=== PATIENT | female | born 1975 | race Caucasian/White ===

== ENCOUNTER 2021-06-20 16:48 | Emergency (ER) | payer MEDICAID ==
[~2021-06-20] VITALS: Ht 157.5 cm; Wt 115.0 kg
[2021-06-20 17:05] VITALS: BP 186/114
[2021-06-20] MEDS ORDERED: VISCOUS LIDOCAINE 2% 15 ML UDC PO STA (19:58)
[2021-06-20] MEDS ORDERED: ACETAMINOPHEN 325MG TABLET PO STA (19:58)
[2021-06-20] MEDS ORDERED: MAGNESIUM/ALUMINUM HYDROXIDE/SIMETHICONE 30ML UDC PO STA (19:58)
[2021-06-20] MEDS ORDERED: SODIUM CHLORIDE 0.9% 1,000 ML IV ONE (20:00)
[2021-06-20 21:49] LABS: BASOPHILS % 0.4 % (0.0-2.0); EOSINOPHILS % 0.3 % (0.0-5.0); HEMOGLOBIN. 14.3 g/dL (12.0-16.0); LYMPHOCYTES % 28.4 % (20.0-50.0); MEAN CORPUSCULAR HEMOGLOBIN 29.8 pg (28.0-32.0); MEAN CORPUSCULAR VOLUME 85.4 fL (81.0-99.0); MEAN PLATELET VOLUME 7.9 fl (7.4-10.4); MONOCYTES % 6.6 % (2.0-8.0); NEUTROPHILS % 64.3 % (40.0-76.0); PLATELET 337 x1000/uL (130-400); RED CELL DISTRIBUTION WIDTH 14.7 % (11.6-14.6)
[2021-06-20 21:56] LABS: CHLORIDE 102 mEq/L (98-107); HCG SCREEN NEGATIVE
[2021-06-20 21:58] LABS: PROTHROMBIN TIME 10.5 sec (9.6-11.0)
[2021-06-20 22:32] LABS: CLARITY URINE CLEAR (CLEAR); KETONES URINE NEGATIVE (NEGATIVE); LEUKOCYTE ESTERASE URINE NEGATIVE (NEGATIVE); NITRITE URINE NEGATIVE (NEGATIVE); OCCULT BLOOD URINE 2+ (NEGATIVE); PH URINE 5.5 (4.5-8.0); PROTEIN URINE NEGATIVE (NEGATIVE); SPECIFIC GRAVITY URINE 1.026 (1.005-1.030); UROBILINOGEN URINE 0.2 E.U./dL (0.2-1.0)
[2021-06-20 22:53] LABS: COLOR URINE CH063342 (YELLOW)
[2021-06-20] MEDS ORDERED: ONDA4TAB5 MT (23:29)
== END 2021-06-20 23:52 | disposition home or self-care (01) ==
LOC: ER 16:48
DX: R10.9 Unspecified abdominal pain (principal); R74.01 Elevation of levels of liver transaminase levels; R03.0 Elevated blood-pressure reading, without diagnosis of hypertension; E11.9 Type 2 diabetes mellitus without complications; G40.909 Epilepsy, unspecified, not intractable, without status epilepticus; Z88.3 Allergy status to other anti-infective agents; Z88.5 Allergy status to narcotic agent; Z98.82 Breast implant status; Z98.84 Bariatric surgery status; Z98.890 Other specified postprocedural states
CPT/HCPCS: 36415; 74176; 80053; 81003; 81025; 83690; 84703; 85025; 85610; 93005; 96360; 99285; J7030